=== PATIENT | male | born 1955 | race Caucasian/White ===

== ENCOUNTER 2021-02-20 15:56 | Emergency (ER) | payer SELFPAY ==
[~2021-02-20] VITALS: Ht 175.3 cm; Wt 97.5 kg
[~2021-02-20 15:56] MED LIST: ASPI325; Augmentin 875-1 EACH PO; Percocet 5-3251 EACH PO; Zofran Odt4 MG SL
[2021-02-20] MEDS ORDERED: LIDO700A20 TOP (17:19)
[2021-02-20] MEDS ORDERED: CYCL10 PO (17:19)
== END 2021-02-20 18:25 | disposition home or self-care (01) ==
LOC: ER 15:56
DX: S39.012A Strain of muscle, fascia and tendon of lower back, initial encounter (principal); X50.1XXA Overexertion from prolonged static or awkward postures, initial encounter
CPT/HCPCS: 96372-59; 96374; 99283-25; A9270; J1885; J3360